=== PATIENT | male | born 1995 | race American Indian/Alaskan Native ===

== ENCOUNTER 2016-08-04 15:06 | Observation (INO) | payer OTHER ==
--- NOTE | 2016-08-04 15:10 | EDM.PDOC ---
ED HPI GENERAL MEDICAL PROBLEM - General Stated Complaint: INGESTED BREAK FLUID Time Seen by Provider: 08/04/16 15:25 Source of Information: Reports: Patient History Limitations: Reports: No Limitations - History of Present Illness INITIAL COMMENTS - FREE TEXT/NARRATIVE: History of present illness: [] Patient was changing brake fluid in his car at approximately 1:30-2PM when a large amount of bright fluid splashed onto his face and he ingested some. He states this happened 2 times. Patient states he feels sleepy and his eyes are burning. Poison control was contacted and stated that this patient needs to be admitted for 24 hours with every 6 labs to determine if he has acidosis and treated Fomepizole if he becomes acidotic. Review of systems: As per history of present illness and below otherwise all systems reviewed and negative. Past medical history: As per history of present illness and as reviewed below otherwise noncontributory. Surgical history: As per history of present illness and as reviewed below otherwise noncontributory. Social history: No reported history of drug or alcohol abuse. Family history: As per history of present illness and as reviewed below otherwise noncontributory. Physical exam: General: Well developed, well nourished in NAD HEENT: Atraumatic, normocephalic, pupils reactive, negative for conjunctival pallor or scleral icterus, mucous membranes moist, throat clear, neck supple, nontender, trachea midline. Lungs: Clear to auscultation, breath sounds equal bilaterally, chest nontender. Heart: S1S2, regular, negative for clicks, rubs, or JVD. Abdomen: Soft, nondistended, nontender. Negative for masses or hepatosplenomegaly. Negative for costovertebral tenderness. Pelvis: Stable nontender. Genitourinary: Deferred. Rectal: Deferred. Extremities: Atraumatic, negative for cords or calf pain. Neurovascular unremarkable. Neuro: Awake, alert, oriented. Cranial nerves II through XII unremarkable. Cerebellum unremarkable. Motor and sensory unremarkable throughout. Exam nonfocal. Diagnostics: []Labs including ABG, CBC, chemistry and alcohol levels ordered patient is alkalotic at this time and not requiring treatment plan observation for 24 hours with repeat labs is recommended to determine if he is acidotic. Therapeutics: [] Impression: [] Ethylene glycol Ingestion Plan: []Admitted for problems Definitive disposition and diagnosis as appropriate pending reevaluation and review of above. abdomen Pain Score (Numeric/FACES): 3 - Related Data Allergies Allergy/AdvReac Type Severity Reaction Status Date / Time No Known Allergies Allergy Verified 08/04/16 15:13 Home Meds: Home Meds . [No Known Home Meds] 11/17/14 [History] Social & Family History - Tobacco Use Smoking Status *Q: Current Every Day Smoker Years of Tobacco use: 1 Packs/Tins Daily: 0.5 - Alcohol Use Days Per Week of Alcohol Use: 1 Number of Drinks Per Day: 6 Total Drinks Per Week: 6 - Recreational Drug Use Recreational Drug Use: No ED ROS GENERAL - Review of Systems Review Of Systems: See Below (See history of present illness) ED EXAM, GENERAL - Physical Exam Exam: See Below (See history of present illness) Course - Vital Signs Last Recorded V/S: Last Vital Signs Temp 36.8 C 08/04/16 15:16 Pulse 79 08/04/16 15:16 Resp 18 08/04/16 15:16 BP 158/96 H 08/04/16 15:16 Pulse Ox 96 08/04/16 15:16 - Orders/Labs/Meds Orders: Active Orders 24 hr Category Date Time Status Patient Status [ADT] Routine ADT 08/04/16 16:46 Active Antiembolic Devices [RC] PER UNIT ROUTINE Care 08/04/16 16:50 Active Intake and Output [RC] QSHIFT Care 08/04/16 16:50 Active Oxygen Therapy [RC] PRN Care 08/04/16 16:46 Active Up ad Kristie [RC] ASDIRECTED Care 08/04/16 16:46 Active VTE/DVT Education [RC] PER UNIT ROUTINE Care 08/04/16 16:46 Active Vital Signs [RC] Q4H Care 08/04/16 16:46 Active Regular Diet [DIET] Diet 08/04/16 Breakfast Active ABG [BLOOD GAS ARTERIAL] [BG] Q6H Lab 08/04/16 22:00 Ordered ABG [BLOOD GAS ARTERIAL] [BG] Q6H Lab 08/05/16 04:00 Ordered ABG [BLOOD GAS ARTERIAL] [BG] Q6H Lab 08/05/16 10:00 Ordered ABG [BLOOD GAS ARTERIAL] [BG] Q6H Lab 08/05/16 16:00 Ordered BASIC METABOLIC PANEL,BMP [CHEM] Q6H Lab 08/04/16 22:00 Ordered BASIC METABOLIC PANEL,BMP [CHEM] Q6H Lab 08/05/16 04:00 Ordered BASIC METABOLIC PANEL,BMP [CHEM] Q6H Lab 08/05/16 10:00 Ordered BASIC METABOLIC PANEL,BMP [CHEM] Q6H Lab 08/05/16 16:00 Ordered UA W/MICROSCOPIC [URIN] Stat Lab 08/04/16 15:40 Uncollected Saline Lock Insert [OM.PC] Stat Oth 08/04/16 15:22 Ordered Sequential Compression Device [OM.PC] Per Unit Routine Oth 08/04/16 16:50 Ordered Resuscitation Status Routine Resus Stat 08/04/16 16:46 Ordered Labs: Laboratory Tests 08/04/16 08/04/16 08/04/16 Range/Units 15:43 15:45 15:45 WBC 7.57 (4.0-11.0) K/uL RBC 5.12 (4.50-5.90) M/uL Hgb 15.1 (13.0-17.0) g/dL Hct 44.3 (38.0-50.0) % MCV 86.5 (80.0-98.0) fL MCH 29.5 (27.0-32.0) pg MCHC 34.1 (31.0-37.0) g/dL RDW Std Deviation 43.6 (28.0-62.0) fl RDW Coeff of Lilia 14 (11.0-15.0) % Plt Count 250 (150-400) K/uL MPV 9.00 (7.40-12.00) fL Neut % (Auto) 62.7 (48.0-80.0) % Lymph % (Auto) 25.8 (16.0-40.0) % Kerr % (Auto) 10.8 (0.0-15.0) % Eos % (Auto) 0.3 (0.0-7.0) % Baso % (Auto) 0.4 (0.0-1.5) % Neut # (Auto) 4.8 (1.4-5.7) K/uL Lymph # (Auto) 2.0 (0.6-2.4) K/uL Kerr # (Auto) 0.8 (0.0-0.8) K/uL Eos # (Auto) 0.0 (0.0-0.7) K/uL Baso # (Auto) 0.0 (0.0-0.1) K/uL Nucleated RBC % 0.0 /100WBC Nucleated RBCs # 0 K/uL ABG pH 7.476 H (7.35-7.45) ABG pCO2 33 L (35-45) mmHG ABG pO2 99 (75-100) mmHG ABG HCO3 24 (22-26) mEq/L ABG Total CO2 20.8 ABG Base Excess 0.8 (-2.0-2.0) Sodium 137 (136-146) mmol/L Potassium 3.8 (3.5-5.1) mmol/L Chloride 103 (98-110) mmol/L Carbon Dioxide 22 (21-31) mmol/L BUN 12 (6.0-23.0) mg/dL Creatinine 1.1 (0.6-1.5) mg/dL Est Cr Clr Drug Dosing 117.58 mL/min Estimated GFR (MDRD) > 60.0 ml/min Glucose 91 (60-110) mg/dL Calcium 10.3 (8.8-10.8) mg/dL Magnesium 1.6 (1.5-2.3) mEq/L Total Bilirubin 0.8 (0.1-1.5) mg/dL AST 27 (5-40) IU/L ALT 25 (8-54) IU/L Alkaline Phosphatase 96 (40-150) Total Protein 9.4 H (6.0-8.0) g/dL Albumin 5.2 H (3.5-5.0) g/dL Globulin 4.2 H (2.0-3.5) g/dL Albumin/Globulin Ratio 1.2 L (1.3-2.8) Ethyl Alcohol mg/dL 08/04/16 Range/Units 15:45 WBC (4.0-11.0) K/uL RBC (4.50-5.90) M/uL Hgb (13.0-17.0) g/dL Hct (38.0-50.0) % MCV (80.0-98.0) fL MCH (27.0-32.0) pg MCHC (31.0-37.0) g/dL RDW Std Deviation (28.0-62.0) fl RDW Coeff of Lilia (11.0-15.0) % Plt Count (150-400) K/uL MPV (7.40-12.00) fL Neut % (Auto) (48.0-80.0) % Lymph % (Auto) (16.0-40.0) % Kerr % (Auto) (0.0-15.0) % Eos % (Auto) (0.0-7.0) % Baso % (Auto) (0.0-1.5) % Neut # (Auto) (1.4-5.7) K/uL Lymph # (Auto) (0.6-2.4) K/uL Kerr # (Auto) (0.0-0.8) K/uL Eos # (Auto) (0.0-0.7) K/uL Baso # (Auto) (0.0-0.1) K/uL Nucleated RBC % /100WBC Nucleated RBCs # K/uL ABG pH (7.35-7.45) ABG pCO2 (35-45) mmHG ABG pO2 (75-100) mmHG ABG HCO3 (22-26) mEq/L ABG Total CO2 ABG Base Excess (-2.0-2.0) Sodium (136-146) mmol/L Potassium (3.5-5.1) mmol/L Chloride (98-110) mmol/L Carbon Dioxide (21-31) mmol/L BUN (6.0-23.0) mg/dL Creatinine (0.6-1.5) mg/dL Est Cr Clr Drug Dosing mL/min Estimated GFR (MDRD) ml/min Glucose (60-110) mg/dL Calcium (8.8-10.8) mg/dL Magnesium (1.5-2.3) mEq/L Total Bilirubin (0.1-1.5) mg/dL AST (5-40) IU/L ALT (8-54) IU/L Alkaline Phosphatase (40-150) Total Protein (6.0-8.0) g/dL Albumin (3.5-5.0) g/dL Globulin (2.0-3.5) g/dL Albumin/Globulin Ratio (1.3-2.8) Ethyl Alcohol < 10.0 mg/dL Meds: Medications Discontinued Medications Generic Name Dose Route Start Last Admin Trade Name Pavithra PRN Reason Stop Dose Admin Sodium Chloride 1,000 mls @ 999 mls/hr 08/04/16 15:23 08/04/16 16:00 Normal Saline IV 08/04/16 16:23 999 mls/hr .Bolus ONE Administration Ondansetron HCl 4 mg 08/04/16 15:49 08/04/16 15:56 Zofran IVPUSH 08/04/16 15:50 4 mg ONETIME ONE Administration Departure - Departure Time of Disposition: 16:55 Disposition: Admitted As Inpatient 66 Condition: good Clinical Impression: Ethylene glycol poisoning Qualifiers: Encounter type: initial encounter Injury intent: accidental or unintentional Qualified Code(s): T52.8X1A - Toxic effect of other organic solvents, accidental (unintentional), initial encounter - Discharge Information Referrals: PCP,None [Primary Care Provider] - - My Orders Last 24 Hours: My Active Orders 08/04/16 15:22 Saline Lock Insert [OM.PC] Stat 08/04/16 15:40 UA W/MICROSCOPIC [URIN] Stat - Assessment/Plan Last 24 Hours: My Active Orders 08/04/16 15:22 Saline Lock Insert [OM.PC] Stat 08/04/16 15:40 UA W/MICROSCOPIC [URIN] Stat
[2016-08-04] MEDS ORDERED: Sodium Chloride 0.9% 1,000 ML IV ONE (15:23)
[2016-08-04] MEDS ORDERED: Ondansetron 4 MG/2 ML SDV IVPUSH ONE (15:49)
[2016-08-04 16:15] LABS: CHLORIDE,CL 103 mmol/L (98-110); SODIUM,NA 137 mmol/L (136-146)
--- NOTE | 2016-08-04 16:22 | CR ---
EXAMINATION: Two-view chest (PA and Lateral views). HISTORY: Shortness of breath. FINDINGS: The trachea is midline. The cardiomediastinal silhouette is within normal limits. No pulmonary infil trates, effusions or pneumothorax. Osseous structures appear unremarkable. IMPRESSION: No acute cardiopulmonary process.
--- NOTE | 2016-08-04 17:01 | PCM.HP ---
H&P History of Present Illness - General Admit Problem/Dx: Admission Diagnosis/Problem Admission Diagnosis/Problem Poisoning by drug - History of Present Illness Initial Comments - Free Text/Narative: 20 yo male who while changing brakefluid had the line spray in his face. He reports some went in his mouth but he did not swallow but maybe a few drops. He reported some nausea that has resolved. He presented to the ED. Poison control was called and recommended to monitor for 24 hours with q6 labs and treat if acidotic. abdomen Pain Score (Numeric/FACES): 3 - Related Data Allergies/Adverse Reactions: Allergies Allergy/AdvReac Type Severity Reaction Status Date / Time No Known Allergies Allergy Verified 08/04/16 15:13 Home Medications: Home Meds . [No Known Home Meds] 11/17/14 [History] Past Medical History - Past Health History Medical/Surgical History: Denies Medical/Surgical History - Past Surgical History Musculoskeletal Surgical History: Reports: Other (See Below) Other Musculoskeletal Surgeries/Procedures:: right leg sx Social & Family History - Family History Family Medical History: Noncontributory - Tobacco Use Smoking Status *Q: Current Every Day Smoker Years of Tobacco use: 1 Packs/Tins Daily: 0.5 - Caffeine Use Caffeine Use: Reports: None - Alcohol Use Days Per Week of Alcohol Use: 1 Number of Drinks Per Day: 6 Total Drinks Per Week: 6 - Recreational Drug Use Recreational Drug Use: No H&P Review of Systems - Review of Systems: Review Of Systems: See Below General: Reports: No Symptoms HEENT: Reports: No Symptoms Pulmonary: Reports: No Symptoms Cardiovascular: Reports: No Symptoms Gastrointestinal: Reports: No Symptoms Genitourinary: Reports: No Symptoms Musculoskeletal: Reports: No Symptoms Skin: Reports: No Symptoms Psychiatric: Reports: No Symptoms Neurological: Reports: No Symptoms Hematologic/Lymphatic: Reports: No Symptoms Immunologic: Reports: No Symptoms Exam - Exam Exam: See Below - Vital Signs Vital Signs: Last Vital Signs Temp 36.8 C 08/04/16 15:16 Pulse 79 08/04/16 15:16 Resp 18 08/04/16 15:16 BP 158/96 H 08/04/16 15:16 Pulse Ox 96 08/04/16 15:16 Weight: 83.8 kg - Exam General: Alert, Oriented Lungs: Clear to Auscultation, Normal Respiratory Effort Cardiovascular: Regular Rate, Regular Rhythm Abdomen: Soft. No: Tenderness Extremities: Normal Inspection Skin: Warm, Dry, Intact Neurological: No: Focal Deficit - Patient Data Lab Results last 24 hrs: Laboratory Results - last 24 hr 08/04/16 08/04/16 08/04/16 Range/Units 15:43 15:45 15:45 WBC 7.57 (4.0-11.0) K/uL RBC 5.12 (4.50-5.90) M/uL Hgb 15.1 (13.0-17.0) g/dL Hct 44.3 (38.0-50.0) % MCV 86.5 (80.0-98.0) fL MCH 29.5 (27.0-32.0) pg MCHC 34.1 (31.0-37.0) g/dL RDW Std Deviation 43.6 (28.0-62.0) fl RDW Coeff of Lilia 14 (11.0-15.0) % Plt Count 250 (150-400) K/uL MPV 9.00 (7.40-12.00) fL Neut % (Auto) 62.7 (48.0-80.0) % Lymph % (Auto) 25.8 (16.0-40.0) % Rolette % (Auto) 10.8 (0.0-15.0) % Eos % (Auto) 0.3 (0.0-7.0) % Baso % (Auto) 0.4 (0.0-1.5) % Neut # (Auto) 4.8 (1.4-5.7) K/uL Lymph # (Auto) 2.0 (0.6-2.4) K/uL Rolette # (Auto) 0.8 (0.0-0.8) K/uL Eos # (Auto) 0.0 (0.0-0.7) K/uL Baso # (Auto) 0.0 (0.0-0.1) K/uL Nucleated RBC % 0.0 /100WBC Nucleated RBCs # 0 K/uL ABG pH 7.476 H (7.35-7.45) ABG pCO2 33 L (35-45) mmHG ABG pO2 99 (75-100) mmHG ABG HCO3 24 (22-26) mEq/L ABG Total CO2 20.8 ABG Base Excess 0.8 (-2.0-2.0) Sodium 137 (136-146) mmol/L Potassium 3.8 (3.5-5.1) mmol/L Chloride 103 (98-110) mmol/L Carbon Dioxide 22 (21-31) mmol/L BUN 12 (6.0-23.0) mg/dL Creatinine 1.1 (0.6-1.5) mg/dL Est Cr Clr Drug Dosing 117.58 mL/min Estimated GFR (MDRD) > 60.0 ml/min Glucose 91 (60-110) mg/dL Calcium 10.3 (8.8-10.8) mg/dL Magnesium 1.6 (1.5-2.3) mEq/L Total Bilirubin 0.8 (0.1-1.5) mg/dL AST 27 (5-40) IU/L ALT 25 (8-54) IU/L Alkaline Phosphatase 96 (40-150) Total Protein 9.4 H (6.0-8.0) g/dL Albumin 5.2 H (3.5-5.0) g/dL Globulin 4.2 H (2.0-3.5) g/dL Albumin/Globulin Ratio 1.2 L (1.3-2.8) Ethyl Alcohol mg/dL 08/04/16 Range/Units 15:45 WBC (4.0-11.0) K/uL RBC (4.50-5.90) M/uL Hgb (13.0-17.0) g/dL Hct (38.0-50.0) % MCV (80.0-98.0) fL MCH (27.0-32.0) pg MCHC (31.0-37.0) g/dL RDW Std Deviation (28.0-62.0) fl RDW Coeff of Lilia (11.0-15.0) % Plt Count (150-400) K/uL MPV (7.40-12.00) fL Neut % (Auto) (48.0-80.0) % Lymph % (Auto) (16.0-40.0) % Rolette % (Auto) (0.0-15.0) % Eos % (Auto) (0.0-7.0) % Baso % (Auto) (0.0-1.5) % Neut # (Auto) (1.4-5.7) K/uL Lymph # (Auto) (0.6-2.4) K/uL Rolette # (Auto) (0.0-0.8) K/uL Eos # (Auto) (0.0-0.7) K/uL Baso # (Auto) (0.0-0.1) K/uL Nucleated RBC % /100WBC Nucleated RBCs # K/uL ABG pH (7.35-7.45) ABG pCO2 (35-45) mmHG ABG pO2 (75-100) mmHG ABG HCO3 (22-26) mEq/L ABG Total CO2 ABG Base Excess (-2.0-2.0) Sodium (136-146) mmol/L Potassium (3.5-5.1) mmol/L Chloride (98-110) mmol/L Carbon Dioxide (21-31) mmol/L BUN (6.0-23.0) mg/dL Creatinine (0.6-1.5) mg/dL Est Cr Clr Drug Dosing mL/min Estimated GFR (MDRD) ml/min Glucose (60-110) mg/dL Calcium (8.8-10.8) mg/dL Magnesium (1.5-2.3) mEq/L Total Bilirubin (0.1-1.5) mg/dL AST (5-40) IU/L ALT (8-54) IU/L Alkaline Phosphatase (40-150) Total Protein (6.0-8.0) g/dL Albumin (3.5-5.0) g/dL Globulin (2.0-3.5) g/dL Albumin/Globulin Ratio (1.3-2.8) Ethyl Alcohol < 10.0 mg/dL Result Diagrams: 08/04/16 15:45 08/05/16 09:59 *Q Meaningful Use (ADM) - VTE *Q VTE Criteria *Q: - Stroke *Q Stroke Criteria *Q: - AMI *Q AMI Criteria *Q: Problem List Initiated/Reviewed/Updated: Yes Orders Last 24hrs: Active Orders 24 hr Category Date Time Status Patient Status [ADT] Routine ADT 08/04/16 16:46 Ordered Antiembolic Devices [RC] PER UNIT ROUTINE Care 08/04/16 16:50 Ordered Intake and Output [RC] QSHIFT Care 08/04/16 16:50 Ordered Oxygen Therapy [RC] PRN Care 08/04/16 16:46 Ordered Up ad Kristie [RC] ASDIRECTED Care 08/04/16 16:46 Ordered VTE/DVT Education [RC] PER UNIT ROUTINE Care 08/04/16 16:46 Ordered Vital Signs [RC] Q4H Care 08/04/16 16:46 Ordered Regular Diet [DIET] Diet 08/04/16 Breakfast Ordered ABG [BLOOD GAS ARTERIAL] [BG] Q6H Lab 08/04/16 22:00 Ordered ABG [BLOOD GAS ARTERIAL] [BG] Q6H Lab 08/05/16 04:00 Ordered ABG [BLOOD GAS ARTERIAL] [BG] Q6H Lab 08/05/16 10:00 Ordered ABG [BLOOD GAS ARTERIAL] [BG] Q6H Lab 08/05/16 16:00 Ordered BASIC METABOLIC PANEL,BMP [CHEM] Q6H Lab 08/04/16 22:00 Ordered BASIC METABOLIC PANEL,BMP [CHEM] Q6H Lab 08/05/16 04:00 Ordered BASIC METABOLIC PANEL,BMP [CHEM] Q6H Lab 08/05/16 10:00 Ordered BASIC METABOLIC PANEL,BMP [CHEM] Q6H Lab 08/05/16 16:00 Ordered UA W/MICROSCOPIC [URIN] Stat Lab 08/04/16 15:40 Uncollected Saline Lock Insert [OM.PC] Stat Oth 08/04/16 15:22 Ordered Sequential Compression Device [OM.PC] Per Unit Routine Oth 08/04/16 16:50 Ordered Resuscitation Status Routine Resus Stat 08/04/16 16:46 Ordered Assessment/Plan Comment:: Patient was monitored overnight and has no symptoms this morning. Serial labs revealed on acidosis. Patient was discharged home to follow up with Eunice Castellanos.
[2016-08-04 22:33] LABS: CHLORIDE,CL 106 mmol/L (98-110); SODIUM,NA 137 mmol/L (136-146)
[2016-08-05 04:46] LABS: CHLORIDE,CL 106 mmol/L (98-110); SODIUM,NA 139 mmol/L (136-146)
[2016-08-05 09:17] VITALS: BP 126/88
[2016-08-05 10:27] LABS: CHLORIDE,CL 105 mmol/L (98-110); SODIUM,NA 137 mmol/L (136-146)
== END 2016-08-05 12:30 | disposition home or self-care (01) ==
LOC: MW.ED 15:06 → MW.MS 17:00
PROVIDERS: ADMIT Internal Medicine; ATTEND Internal Medicine
DX: T52.8X1A Toxic effect of other organic solvents, accidental (unintentional), initial encounter (principal); R11.0 Nausea; R06.02 Shortness of breath; F17.210 Nicotine dependence, cigarettes, uncomplicated; Z98.890 Other specified postprocedural states
CPT/HCPCS: 36415; 36600; 71020; 80048; 80053; 81001; 82803; 83735; 85025; 96361; 96374; 99285; G0378; G0480; J2405; J7040; 96360

== ENCOUNTER 2017-03-07 04:48 | Emergency (ER) | payer OTHER ==
[2017-03-07] MEDS ORDERED: Bacitracin Oint 1 GM U/D Packet TOP ONE (05:05)
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
[2017-03-07 06:34] VITALS: BP 144/94
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
== END 2017-03-07 06:22 | disposition home or self-care (01) ==
LOC: MW.ED 04:48
DX: S00.83XA Contusion of other part of head, initial encounter (principal); S09.93XA Unspecified injury of face, initial encounter; S60.511A Abrasion of right hand, initial encounter; S00.211A Abrasion of right eyelid and periocular area, initial encounter; F17.210 Nicotine dependence, cigarettes, uncomplicated; Y04.2XXA Assault by strike against or bumped into by another person, initial encounter
CPT/HCPCS: 70450; 70450-26; 70486; 70486-26; 73120-26-RT; 73120-RT; 99284; 99284-25

== ENCOUNTER 2019-01-25 19:45 | Emergency (ER) | payer OTHER ==
[2019-01-25] MEDS ORDERED: Pantoprazole 80 MG in Sodium Chloride 0.9% 20 ML IVPUSH ONE (20:13)
[2019-01-25] MEDS ORDERED: Sodium Chloride 0.9% 1,000 ML IV ONE (20:13)
[2019-01-25] MEDS ORDERED: Ondansetron 4 MG/2 ML SDV IVPUSH ONE (20:13)
--- NOTE | 2019-01-25 20:31 | EDM.PDOC ---
ED HPI GENERAL MEDICAL PROBLEM - General Chief Complaint: Abdominal Pain Stated Complaint: STOMACH ACHE Time Seen by Provider: 01/25/19 19:48 Source of Information: Reports: Patient History Limitations: Reports: No Limitations - History of Present Illness INITIAL COMMENTS - FREE TEXT/NARRATIVE: HISTORY AND PHYSICAL: History of present illness: Patient is a 23-year-old male who presents to the ED today with concern of upper abdominal pain and vomiting since 4 this morning. Patient states his vomit has been coffee-ground in appearance. Patient denies any substance use. Patient denies any abdominal surgeries. Patient denies fever, chills, chest pain, shortness of breath, or cough. Denies headache, neck stiff ness, change in vision, syncope, or near syncope. Denies diarrhea, constipation, or dysuria. Has not noted any blood in urine or stool. Review of systems: As per history of present illness and below otherwise all systems reviewed and negative. Past medical history: As per history of present illness and as reviewed below otherwise noncontributory. Surgical history: As per history of present illness and as reviewed below otherwise noncontributory. Social history: See social history for further information Family history: As per history of present illness and as reviewed below otherwise noncontributory. Physical exam: General: Patient is alert, oriented, and in no acute distress. Patient sitting comfortably on exam table. HEENT: Atraumatic, normocephalic, pupils equal and reactive bilaterally, negative for conjunctival pallor or scleral icterus, mucous membranes dry, TMs normal bilaterally, throat clear, neck supple, nontender, trachea midline. No drooling or trismus noted. No meningeal signs. No hot potato voice noted. Lungs: Clear to auscultation, breath sounds equal bilaterally, chest nontender. Heart: S1S2, regular rate and rhythm without overt murmur Abdomen: Soft, nondistended. Mild discomfort of the epigastric area without guarding. Negative rebound. Negative for masses or hepatosplenomegaly. Negative for costovertebral tenderness. Pelvis: Stable nontender. Genitourinary: Deferred. Rectal: Hemoccult negative. tone intact. No obvious fissure, hemorrhoids, masses or lesions noted. Skin: Intact, warm, dry. No lesions or rashes noted. Extremities: Atraumatic, negative for cords or calf pain. Neurovascular unremarkable. Neuro: Awake, alert, oriented. Cranial nerves II through XII unremarkable. Cerebellum unremarkable. Motor and sensory unremarkable throughout. Exam nonfocal. Notes: Patient has not vomited today in the ED. Discussed the importance for follow-up with general surgery. Voices understanding and is agreeable to plan of care. Denies any further questions or concerns at this time. Diagnostics: CBC, CMP, UA, lipase, Hemoccult, abdominal pelvic CT Therapeutics: Saline, Zofran, Protonix, Morphine Prescription: Zofran, Protonix, Pepcid Impression: Dehydration H/O vomiting Plan: 1. Take medication as prescribed. Take Tylenol as directed for pain and discomfort. 2. Follow-up with general surgery as discussed. Return to the ED as needed and as discussed. Definitive disposition and diagnosis as appropriate pending reevaluation and review of above. Abdomen Pain Score (Numeric/FACES): 9 - Related Data Allergies Allergy/AdvReac Type Severity Reaction Status Date / Time No Known Allergies Allergy Verified 01/25/19 19:58 Home Meds: Home Meds Famotidine [Pepcid] 20 mg PO DAILY 14 Days #14 tab 01/25/19 [Rx] Pantoprazole Sodium [Protonix] 20 mg PO DAILY 14 Days #14 tablet. 01/25/19 [Rx ] Past Medical History - Past Health History Medical/Surgical History: Denies Medical/Surgical History HEENT History: Reports: Impaired Vision, Other (See Below) Other HEENT History: with contact lens Cardiovascular History: Reports: None Respiratory History: Reports: None Gastrointestinal History: Reports: None Genitourinary History: Reports: None Musculoskeletal History: Reports: None Neurological History: Reports: None Psychiatric History: Reports: None Endocrine/Metabolic History: Reports: None Insulin Pump Model and Lip Of Shank Cutter: None Hematologic History: Reports: None Immunologic History: Reports: None Oncologic (Cancer) History: Reports: None Dermatologic History: Reports: None - Infectious Disease History Infectious Disease History: Reports: None - Past Surgical History Musculoskeletal Surgical History: Reports: Other (See Below) Other Musculoskeletal Surgeries/Procedures:: right leg sx Social & Family History - Family History Family Medical History: Noncontributory Cardiac: Reports: CAD, [place] Endocrine/Metabolic: Reports: Diabetes, type II Oncologic: Reports: Other (See Below) Other Oncologic Family History: cannot remember what type - Tobacco Use Smoking Status *Q: Never Smoker - Caffeine Use Caffeine Use: Reports: None - Recreational Drug Use Recreational Drug Use: No ED ROS GENERAL - Review of Systems Review Of Systems: Comprehensive ROS is negative, except as noted in HPI. ED EXAM, GENERAL - Physical Exam Exam: See Below (see dictation) Course - Vital Signs Last Recorded V/S: Last Vital Signs Temp 97.2 F 01/25/19 19:59 Pulse 100 01/25/19 19:59 Resp 18 01/25/19 19:59 BP 133/76 01/25/19 19:59 Pulse Ox 98 01/25/19 19:59 - Orders/Labs/Meds Orders: Active Orders 24 hr Category Date Time Status Hemoccult [Fecal Occult Blood Collection] [RC] Care 01/25/19 20:14 Active ASDIRECTED Labs: Laboratory Tests 01/25/19 01/25/19 01/25/19 Range/Units 19:55 20:10 20:10 WBC 8.83 (4.0-11.0) K/uL RBC 5.09 (4.50-5.90) M/uL Hgb 15.2 (13.0-17.0) g/dL Hct 42.8 (38.0-50.0) % MCV 84.1 (80.0-98.0) fL MCH 29.9 (27.0-32.0) pg MCHC 35.5 (31.0-37.0) g/dL RDW Std Deviation 39.7 (28.0-62.0) fl RDW Coeff of Lilia 13 (11.0-15.0) % Plt Count 357 (150-400) K/uL MPV 8.80 (7.40-12.00) fL Neut % (Auto) 74.6 (48.0-80.0) % Lymph % (Auto) 17.2 (16.0-40.0) % Tripp % (Auto) 8.0 (0.0-15.0) % Eos % (Auto) 0.0 (0.0-7.0) % Baso % (Auto) 0.2 (0.0-1.5) % Neut # (Auto) 6.6 H (1.4-5.7) K/uL Lymph # (Auto) 1.5 (0.6-2.4) K/uL Tripp # (Auto) 0.7 (0.0-0.8) K/uL Eos # (Auto) 0.0 (0.0-0.7) K/uL Baso # (Auto) 0.0 (0.0-0.1) K/uL Sodium 139 (136-148) mmol/L Potassium 3.9 (3.5-5.1) mmol/L Chloride 99 (98-107) mmol/L Carbon Dioxide 22.9 (21.0-32.0) mmol/L BUN 18 (7.0-18.0) mg/dL Creatinine 1.3 (0.8-1.3) mg/dL Est Cr Clr Drug Dosing 104.13 mL/min Estimated GFR (MDRD) > 60.0 ml/min Glucose 90 (74-106) mg/dL Calcium 9.9 (8.5-10.1) mg/dL Total Bilirubin 0.5 (0.2-1.0) mg/dL AST 24 (15-37) IU/L ALT 37 (14-63) IU/L Alkaline Phosphatase 101 (46-116) U/L Total Protein 9.8 H (6.4-8.2) g/dL Albumin 4.9 (3.4-5.0) g/dL Globulin 4.9 H (2.6-4.0) g/dL Albumin/Globulin Ratio 1.0 (0.9-1.6) Lipase 61 L (73-393) U/L Urine Color YELLOW Urine Appearance CLEAR Urine pH 5.5 (5.0-8.0) Ur Specific Talent >= 1.030 (1.001-1.035) Urine Protein 30 H (NEGATIVE) mg/dL Urine Glucose (UA) NEGATIVE (NEGATIVE) mg/dL Urine Ketones >=80 (NEGATIVE) mg/dL Urine Occult Blood SMALL H (NEGATIVE) Urine Nitrite NEGATIVE (NEGATIVE) Urine Bilirubin SMALL H (NEGATIVE) Urine Ictotest NEGATIVE Urine Urobilinogen 0.2 (<2.0) EU/dL Ur Leukocyte Esterase NEGATIVE (NEGATIVE) Urine RBC 1-2 (0-2/HPF) Urine WBC 0-1 (0-5/HPF) Ur Epithelial Cells RARE (NONE-FEW) Urine Bacteria RARE (NEGATIVE) Meds: Medications Discontinued Medications Generic Name Dose Route Start Last Admin Trade Name Freq PRN Reason Stop Dose Admin Sodium Chloride 1,000 mls @ 999 mls/hr 01/25/19 20:13 01/25/19 20:26 Normal Saline IV 01/25/19 21:13 999 mls/hr BOLUS ONE Administration Pantoprazole Sodium 80 mg/ 20 mls @ 420 mls/hr 01/25/19 20:13 01/25/19 20:27 Sodium Chloride IVPUSH 01/25/19 20:15 420 mls/hr ONETIME ONE Administration Iopamidol 100 ml 01/25/19 21:04 01/25/19 21:04 Isovue Multipack-370 (76%) IVPUSH 01/25/19 21:05 100 ml ONETIME STA Administration Morphine Sulfate 2 mg 01/25/19 20:38 01/25/19 20:44 Morphine IVPUSH 01/25/19 20:39 2 mg ONETIME ONE Administration Ondansetron HCl 4 mg 01/25/19 20:13 01/25/19 20:26 Zofran IVPUSH 01/25/19 20:14 4 mg ONETIME ONE Administration Departure - Departure Time of Disposition: 22:19 Disposition: Home, Self-Care 01 Clinical Impression: Dehydration, History of vomiting - Discharge Information Prescriptions: Famotidine [Pepcid] 20 mg PO DAILY 14 Days #14 tab Pantoprazole Sodium [Protonix] 20 mg PO DAILY 14 Days #14 tablet. Referrals: [facility] [Primary Care Provider] - Forms: ED Department Discharge Additional Instructions: The following information is given to patients seen in the emergency department who are being discharged to home. This information is to outline your options for follow-up care. We provide all patients seen in our emergency department with a follow-up referral. The need for follow-up, as well as the timing and circumstances, are variable depending upon the specifics of your emergency department visit. If you don't have a primary care physician on staff, we will provide you with a referral. We always advise you to contact your personal physician following an emergency department visit to inform them of the circumstance of the visit and for follow-up with them and/or the need for any referrals to a consulting specialist. The emergency department will also refer you to a specialist when appropriate. This referral assures that you have the opportunity for follow-up care with a specialist. All of these measure are taken in an effort to provide you with optimal care, which includes your follow-up. Under all circumstances we always encourage you to contact your private physician who remains a resource for coordinating your care. When calling for follow-up care, please make the office aware that this follow-up is from your recent emergency room visit. If for any reason you are refused follow-up, please contact the [facility] Emergency Department at and asked to speak to the emergency department charge nurse. [facility] [address] [place] [address] [address] [facility] - [facility] Professional [facility] [address] [place] [address], [address] [place] [address] 1. Take medication as prescribed. Take Tylenol as directed for pain and discomfort. 2. Follow-up with general surgery as discussed. Return to the ED as needed and as discussed. - My Orders Last 24 Hours: My Active Orders 01/25/19 20:14 Hemoccult [Fecal Occult Blood Collection] [] ASDIRECTED - Assessment/Plan Last 24 Hours: My Active Orders 01/25/19 20:14 Hemoccult [Fecal Occult Blood Collection] [] ASDIRECTED
[2019-01-25] MEDS ORDERED: Morphine 2 MG/ML Syringe IVPUSH ONE (20:38)
[2019-01-25 20:42] LABS: BLOOD UREA NITROGEN,BUN 18 mg/dL (7.0-18.0); CARBON DIOXIDE,CO2 22.9 mmol/L (21.0-32.0); CHLORIDE,CL 99 mmol/L (98-107); GLUCOSE RANDOM 90 mg/dL (74-106); LIPASE 61 U/L (73-393); POTASSIUM,K 3.9 mmol/L (3.5-5.1); SODIUM,NA 139 mmol/L (136-148)
[2019-01-25] MEDS ORDERED: Iopamidol 755 MG/ML 500 ML Multipack Bottle IVPUSH STA (21:04)
--- NOTE | 2019-01-25 22:14 | CT ---
INDICATION: Abdominal pain, nausea, coffee ground emesis TECHNIQUE: CT abdomen and pelvis acquired with 100 cc Isovue 370 IV contrast. COMPARISON: None FINDINGS: Lower chest: Small hiatal hernia. Liver: Unremarkable. Spleen: Unremarkable. Pancreas: Unremarkable. Gallbladder and bile ducts: Unremarkable. Adrenal glands: Unremarkable. Kidneys: Unremarkable. GI tract: Unremarkable. Appendix is normal. Vascular structures: Unremarkable. Lymph nodes: Unremarkable. Miscellaneous: Small fat containing umbilical hernia. No free air or significant free fluid. Pelvic Organs: Unremarkable. Bones: Unremarkable for age. IMPRESSION: No acute intra-abdominal process identified. Small hiatal hernia. Please note that all CT scans at this facility use dose modulation, iterative reconstruction, and/or weight-based dosing when appropriate to reduce radiation dose to as low as reasonably achievable. Dictated by Peri Tompkins MD @ Jan 25 2019 10:12PM Signed by Dr. Peri Tompkins @ Jan 25 2019 10:12PM
[2019-01-25] MEDS ORDERED: Alum Hydrox/Mag Hydrox/Simeth 15 ML, Metoclopramide 5 MG, Lidocaine 2% 5 ML PO ONE ×3 (22:27)
[2019-01-25 22:48] VITALS: BP 136/96; PULSE 88
== END 2019-01-25 22:52 | disposition home or self-care (01) ==
LOC: MW.ED 19:45
DX: E86.0 Dehydration (principal); R11.10 Vomiting, unspecified; Z79.899 Other long term (current) drug therapy
CPT/HCPCS: 74177; 80053; 81001; 83690; 85025; 96361; 96374; 96375; 99284; A9270; C9113; J2270; J2405; J7030; Q9967

== ENCOUNTER 2019-06-15 10:57 | Emergency (ER) | payer SELFPAY ==
[2019-06-15] MEDS ORDERED: Ondansetron 4 MG/2 ML SDV IVPUSH ONE (11:16)
[2019-06-15] MEDS ORDERED: Sodium Chloride 0.9% 1,000 ML IV ONE (11:16)
[2019-06-15] MEDS ORDERED: Ketorolac 30 MG/ML SDV IVPUSH ONE (11:32)
[2019-06-15] MEDS ORDERED: Pantoprazole 80 MG in Sodium Chloride 0.9% 20 ML IVPUSH ONE (11:33)
[2019-06-15] MEDS ORDERED: Pantoprazole 40 MG Vial ONE (11:38)
--- NOTE | 2019-06-15 11:39 | EDM.PDOC ---
ED HPI GENERAL MEDICAL PROBLEM - General Chief Complaint: Abdominal Pain Stated Complaint: STOMACH PAIN Time Seen by Provider: 06/15/19 11:04 Source of Information: Reports: Patient History Limitations: Reports: No Limitations - History of Present Illness INITIAL COMMENTS - FREE TEXT/NARRATIVE: HISTORY AND PHYSICAL: History of present illness: Patient is a 23-year-old male who presents to the ED today for with concern of periumbilical abdominal pain and and vomiting since he woke up this morning at about 8 AM. Patient states that the vomiting comes and cycles and has not tried to eat or drink anything. Patient describes the stomach pain as a "burning " sensation. Denies any abdominal surgeries. Patient states he does drink alcohol socially and smoke cigarettes but denies any other substance use. Patient denies any health history or any other symptoms or concerns. Patient denies fever, chills, chest pain, shortness of breath, or cough. Denies headache, neck stiff ness, change in vision, syncope, or near syncope. Denies diarrhea, constipation, or dysuria. Has not noted any blood in urine or stool. Review of systems: As per history of present illness and below otherwise all systems reviewed and negative. Past medical history: As per history of present illness and as reviewed below otherwise noncontributory. Surgical history: As per history of present illness and as reviewed below otherwise noncontributory. Social history: See social history for further information Family history: As per history of present illness and as reviewed below otherwise noncontributory. Physical exam: General: Patient is alert, oriented, and in no acute distress. Patient laying comfortably on exam table but has had a few episodes of vomiting upon arrival to the ED HEENT: Atraumatic, normocephalic, pupils equal and reactive bilaterally, negative for conjunctival pallor or scleral icterus, mucous membranes moist, TMs normal bilaterally, throat clear, neck supple, nontender, trachea midline. No drooling or trismus noted. No meningeal signs. No hot potato voice noted. Lungs: Clear to auscultation, breath sounds equal bilaterally, chest nontender. Heart: S1S2, regular rate and rhythm without overt murmur Abdomen: Soft, nondistended, moderate tenderness of the periumbilical abdomen without guarding. Negative rebound and [place]. Negative for masses or hepatosplenomegaly. Negative for costovertebral tenderness. Pelvis: Stable nontender. Genitourinary: Deferred. Rectal: Deferred. Skin: Intact, warm, dry. No lesions or rashes noted. Extremities: Atraumatic, negative for cords or calf pain. Neurovascular unremarkable. Neuro: Awake, alert, oriented. Cranial nerves II through XII unremarkable. Cerebellum unremarkable. Motor and sensory unremarkable throughout. Exam nonfocal. Notes: Patient continued to vomit in the ED while pending diagnostics and Zofran given. After Haldol and Benadryl given, patient no longer had any more episodes of vomiting and states he no longer has abdominal pain and feels better requesting discharge. Admission for observation was offered to patient but he declines at this time. All risks vs benefits discussed with patient and expresses understanding. Discussed importance for follow-up with a primary care provider and the need to have the urinalysis repeated due to protein in urine. Voices understanding and is agreeable to plan of care. Denies any further questions or concerns at this time. Diagnostics: CBC, CMP, UA, EKG, UDS, Lipase, Abd/pelvic w cont Therapeutics: NS, Zofran, Protonix, Toradol, Benadryl, Haldol 5mg Prescription: None Impression: Vomiting, improved Periumbilical abdominal pain, unspecified improved Proteinuria, unspecified Substance abuse Plan: 1. You can alternate ibuprofen and Tylenol as directed for pain and discomfort. 2. Follow-up with a primary care provider as discussed and for repeat labwork. Return to the ED as needed and as discussed. Definitive disposition and diagnosis as appropriate pending reevaluation and review of above. Abdomen Pain Score (Numeric/FACES): 10 - Related Data Allergies Allergy/AdvReac Type Severity Reaction Status Date / Time No Known Allergies Allergy Verified 01/25/19 19:58 Past Medical History - Past Health History Medical/Surgical History: Denies Medical/Surgical History HEENT History: Reports: Impaired Vision, Other (See Below) Other HEENT History: with contact lens Cardiovascular History: Reports: None Respiratory History: Reports: None Gastrointestinal History: Reports: None Genitourinary History: Reports: None Musculoskeletal History: Reports: None Neurological History: Reports: None Psychiatric History: Reports: None Endocrine/Metabolic History: Reports: None Insulin Pump Model and Sanitary Landfill Operator: None Hematologic History: Reports: None Immunologic History: Reports: None Oncologic (Cancer) History: Reports: None Dermatologic History: Reports: None - Infectious Disease History Infectious Disease History: Reports: None - Past Surgical History Musculoskeletal Surgical History: Reports: Other (See Below) Other Musculoskeletal Surgeries/Procedures:: right leg sx Social & Family History - Family History Family Medical History: Noncontributory Cardiac: Reports: CAD, CA Endocrine/Metabolic: Reports: Diabetes, type II Oncologic: Reports: Other (See Below) Other Oncologic Family History: cannot remember what type - Caffeine Use Caffeine Use: Reports: None ED ROS GENERAL - Review of Systems Review Of Systems: Comprehensive ROS is negative, except as noted in HPI. ED EXAM, GENERAL - Physical Exam Exam: See Below (see dictation) Course - Vital Signs Last Recorded V/S: Last Vital Signs Temp 96.2 F L 06/15/19 11:35 Pulse 70 06/15/19 11:37 Resp 16 06/15/19 11:37 BP 95/59 L 06/15/19 13:21 Pulse Ox 96 06/15/19 11:37 - Orders/Labs/Meds Orders: Active Orders 24 hr Category Date Time Status EKG Documentation Completion [RC] STAT Care 06/15/19 11:38 Active Labs: Laboratory Tests 06/15/19 06/15/19 06/15/19 Range/Units 11:20 11:20 14:34 WBC 9.33 (4.0-11.0) K/uL RBC 5.72 (4.50-5.90) M/uL Hgb 16.9 (13.0-17.0) g/dL Hct 49.6 (38.0-50.0) % MCV 86.7 (80.0-98.0) fL MCH 29.5 (27.0-32.0) pg MCHC 34.1 (31.0-37.0) g/dL RDW Std Deviation 44.0 (28.0-62.0) fl RDW Coeff of Lilia 14 (11.0-15.0) % Plt Count 331 (150-400) K/uL MPV 9.00 (7.40-12.00) fL Neut % (Auto) 78.4 (48.0-80.0) % Lymph % (Auto) 16.0 (16.0-40.0) % [place] % (Auto) 5.3 (0.0-15.0) % Eos % (Auto) 0.1 (0.0-7.0) % Baso % (Auto) 0.2 (0.0-1.5) % Neut # (Auto) 7.3 H (1.4-5.7) K/uL Lymph # (Auto) 1.5 (0.6-2.4) K/uL [place] # (Auto) 0.5 (0.0-0.8) K/uL Eos # (Auto) 0.0 (0.0-0.7) K/uL Baso # (Auto) 0.0 (0.0-0.1) K/uL Nucleated RBC % 0.0 /100WBC Nucleated RBCs # 0 K/uL Sodium 138 (136-148) mmol/L Potassium 4.2 (3.5-5.1) mmol/L Chloride 97 L (98-107) mmol/L Carbon Dioxide 19.1 L (21.0-32.0) mmol/L BUN 16 (7.0-18.0) mg/dL Creatinine 1.3 (0.8-1.3) mg/dL Est Cr Clr Drug Dosing 99.88 mL/min Estimated GFR (MDRD) > 60.0 ml/min Glucose 88 (74-106) mg/dL Calcium 10.1 (8.5-10.1) mg/dL Total Bilirubin 0.9 (0.2-1.0) mg/dL AST 46 H (15-37) IU/L ALT 42 (14-63) IU/L Alkaline Phosphatase 133 H (46-116) U/L Total Protein 10.1 H (6.4-8.2) g/dL Albumin 5.3 H (3.4-5.0) g/dL Globulin 4.8 H (2.6-4.0) g/dL Albumin/Globulin Ratio 1.1 (0.9-1.6) Lipase 93 (73-393) U/L Urine Color YELLOW Urine Appearance CLEAR Urine pH 6.0 (5.0-8.0) Ur Specific [place] 1.025 (1.001-1.035) Urine Protein 30 H (NEGATIVE) mg/dL Urine Glucose (UA) NEGATIVE (NEGATIVE) mg/dL Urine Ketones 40 H (NEGATIVE) mg/dL Urine Occult Blood SMALL H (NEGATIVE) Urine Nitrite NEGATIVE (NEGATIVE) Urine Bilirubin NEGATIVE (NEGATIVE) Urine Urobilinogen 0.2 (<2.0) EU/dL Ur Leukocyte Esterase NEGATIVE (NEGATIVE) Urine RBC 0-2 (0-2/HPF) Urine WBC 0-2 (0-5/HPF) Ur Epithelial Cells RARE (NONE-FEW) Urine Bacteria RARE (NEGATIVE) Urine Mucus LIGHT (NONE-MOD) Urine Opiates Screen (NEGATIVE) Ur Oxycodone Screen (NEGATIVE) Urine Methadone Screen (NEGATIVE) Ur Barbiturates Screen (NEGATIVE) Ur Phencyclidine Scrn (NEGATIVE) Ur Amphetamine Screen (NEGATIVE) U Methamphetamines Scrn (NEGATIVE) U Benzodiazepines Scrn (NEGATIVE) U Cocaine Metab Screen (NEGATIVE) U Marijuana (THC) Screen (NEGATIVE) 06/15/19 Range/Units 14:34 WBC (4.0-11.0) K/uL RBC (4.50-5.90) M/uL Hgb (13.0-17.0) g/dL Hct (38.0-50.0) % MCV (80.0-98.0) fL MCH (27.0-32.0) pg MCHC (31.0-37.0) g/dL RDW Std Deviation (28.0-62.0) fl RDW Coeff of [place] (11.0-15.0) % Plt Count (150-400) K/uL MPV (7.40-12.00) fL Neut % (Auto) (48.0-80.0) % Lymph % (Auto) (16.0-40.0) % [place] % (Auto) (0.0-15.0) % Eos % (Auto) (0.0-7.0) % Baso % (Auto) (0.0-1.5) % Neut # (Auto) (1.4-5.7) K/uL Lymph # (Auto) (0.6-2.4) K/uL [place] # (Auto) (0.0-0.8) K/uL Eos # (Auto) (0.0-0.7) K/uL Baso # (Auto) (0.0-0.1) K/uL Nucleated RBC % /100WBC Nucleated RBCs # K/uL Sodium (136-148) mmol/L Potassium (3.5-5.1) mmol/L Chloride (98-107) mmol/L Carbon Dioxide (21.0-32.0) mmol/L BUN (7.0-18.0) mg/dL Creatinine (0.8-1.3) mg/dL Est Cr Clr Drug Dosing mL/min Estimated GFR (MDRD) ml/min Glucose (74-106) mg/dL Calcium (8.5-10.1) mg/dL Total Bilirubin (0.2-1.0) mg/dL AST (15-37) IU/L ALT (14-63) IU/L Alkaline Phosphatase (46-116) U/L Total Protein (6.4-8.2) g/dL Albumin (3.4-5.0) g/dL Globulin (2.6-4.0) g/dL Albumin/Globulin Ratio (0.9-1.6) Lipase (73-393) U/L Urine Color Urine Appearance Urine pH (5.0-8.0) Ur Specific [place] (1.001-1.035) Urine Protein (NEGATIVE) mg/dL Urine Glucose (UA) (NEGATIVE) mg/dL Urine Ketones (NEGATIVE) mg/dL Urine Occult Blood (NEGATIVE) Urine Nitrite (NEGATIVE) Urine Bilirubin (NEGATIVE) Urine Urobilinogen (<2.0) EU/dL Ur Leukocyte Esterase (NEGATIVE) Urine RBC (0-2/HPF) Urine WBC (0-5/HPF) Ur Epithelial Cells (NONE-FEW) Urine Bacteria (NEGATIVE) Urine Mucus (NONE-MOD) Urine Opiates Screen NEGATIVE (NEGATIVE) Ur Oxycodone Screen NEGATIVE (NEGATIVE) Urine Methadone Screen NEGATIVE (NEGATIVE) Ur Barbiturates Screen NEGATIVE (NEGATIVE) Ur Phencyclidine Scrn NEGATIVE (NEGATIVE) Ur Amphetamine Screen POSITIVE (NEGATIVE) U Methamphetamines Scrn POSITIVE (NEGATIVE) U Benzodiazepines Scrn NEGATIVE (NEGATIVE) U Cocaine Metab Screen NEGATIVE (NEGATIVE) U Marijuana (THC) Screen POSITIVE (NEGATIVE) Meds: Medications Discontinued Medications Generic Name Dose Route Start Last Admin Trade Name Freq PRN Reason Stop Dose Admin Diphenhydramine HCl 50 mg 06/15/19 12:06 Benadryl IVPUSH 06/15/19 12:07 ONETIME ONE Diphenhydramine HCl 50 mg 06/15/19 12:09 06/15/19 12:08 Benadryl IVPUSH 06/15/19 12:10 50 mg ONETIME ONE Administration Haloperidol Lactate 5 mg 06/15/19 12:08 06/15/19 12:19 Haldol IM 06/15/19 12:09 Not Given ONETIME ONE Haloperidol Lactate 5 mg 06/15/19 12:12 06/15/19 12:19 Haldol IM 06/15/19 12:13 5 mg ONETIME ONE Administration Sodium Chloride 1,000 mls @ 999 mls/hr 06/15/19 11:16 06/15/19 11:32 Normal Saline IV 06/15/19 12:16 999 mls/hr STAT ONE Administration Pantoprazole Sodium 80 mg/ 20 mls @ 420 mls/hr 06/15/19 11:33 06/15/19 11:37 Sodium Chloride IVPUSH 06/15/19 11:35 420 mls/hr ONETIME ONE Administration Iopamidol 100 ml 06/15/19 13:42 06/15/19 13:45 Isovue Multipack-370 (76%) IVPUSH 06/15/19 13:43 100 ml ONETIME STA Administration Ketorolac Tromethamine 30 mg 06/15/19 11:32 06/15/19 11:36 Toradol IVPUSH 06/15/19 11:33 30 mg ONETIME ONE Administration Metoclopramide HCl 10 mg 06/15/19 12:06 Reglan IV 06/15/19 12:07 ONETIME ONE Ondansetron HCl 4 mg 06/15/19 11:16 06/15/19 11:32 Zofran IVPUSH 06/15/19 11:17 4 mg ONETIME ONE Administration Pantoprazole Sodium Confirm 06/15/19 11:38 06/15/19 12:13 Protonix Iv Administered 06/15/19 11:39 Not Given Dose 40 mg .ROUTE .STK-MED ONE Departure - Departure Time of Disposition: 15:27 Disposition: Home, Self-Care 01 Clinical Impression: Substance abuse Abdominal pain Qualifiers: Abdominal location: periumbilical Qualified Code(s): R10.33 - Periumbilical pain Vomiting Qualifiers: Vomiting type: unspecified Vomiting Intractability: unspecified Nausea presence : with nausea Qualified Code(s): R11.2 - Nausea with vomiting, unspecified Proteinuria Qualifiers: Proteinuria type: unspecified Qualified Code(s): R80.9 - Proteinuria, unspecified - Discharge Information Instructions: Nausea and Vomiting, Adult, [id number], Abdominal Pain, Adult, [id number] Referrals: PCP,None [Primary Care Provider] - Forms: ED Department Discharge Additional Instructions: The following information is given to patients seen in the emergency department who are being discharged to home. This information is to outline your options for follow-up care. We provide all patients seen in our emergency department with a follow-up referral. The need for follow-up, as well as the timing and circumstances, are variable depending upon the specifics of your emergency department visit. If you don't have a primary care physician on staff, we will provide you with a referral. We always advise you to contact your personal physician following an emergency department visit to inform them of the circumstance of the visit and for follow-up with them and/or the need for any referrals to a consulting specialist. The emergency department will also refer you to a specialist when appropriate. This referral assures that you have the opportunity for follow-up care with a specialist. All of these measure are taken in an effort to provide you with optimal care, which includes your follow-up. Under all circumstances we always encourage you to contact your private physician who remains a resource for coordinating your care. When calling for follow-up care, please make the office aware that this follow-up is from your recent emergency room visit. If for any reason you are refused follow-up, please contact the [facility] Emergency Department at and asked to speak to the emergency department charge nurse. [facility] [address] [place] [id number] [id number] 1. You can alternate ibuprofen and Tylenol as directed for pain and discomfort. 2. Follow-up with a primary care provider as discussed. Return to the ED as needed and as discussed. Sepsis Event Note - Focused Exam Vital Signs: Vital Signs Temp Pulse Pulse Resp BP BP Pulse Ox 06/15/19 13:21 95/59 L 06/15/19 11:37 70 16 136/81 96 06/15/19 11:35 96.2 F L 68 20 148/102 H 100 Date Exam was Performed: 06/15/19 Time Exam was Performed: 15:27 - My Orders Last 24 Hours: My Active Orders 06/15/19 11:38 EKG Documentation Completion [RC] STAT - Assessment/Plan Last 24 Hours: My Active Orders 06/15/19 11:38 EKG Documentation Completion [RC] STAT
[2019-06-15 12:03] LABS: BLOOD UREA NITROGEN,BUN 16 mg/dL (7.0-18.0); CARBON DIOXIDE,CO2 19.1 mmol/L (21.0-32.0); CHLORIDE,CL 97 mmol/L (98-107); GLUCOSE RANDOM 88 mg/dL (74-106); LIPASE 93 U/L (73-393); POTASSIUM,K 4.2 mmol/L (3.5-5.1); SODIUM,NA 138 mmol/L (136-148)
[2019-06-15] MEDS ORDERED: diphenhydrAMINE 50 MG/ML SDV IVPUSH ONE ×2 (12:06→12:09)
[2019-06-15] MEDS ORDERED: Metoclopramide 10 MG/2 ML SDV IV ONE (12:06)
[2019-06-15] MEDS ORDERED: Haloperidol Lactate 5 MG/ML SDV IM ONE ×2 (12:08→12:12)
[2019-06-15] MEDS ORDERED: Iopamidol 755 MG/ML 500 ML Multipack Bottle IVPUSH STA (13:42)
--- NOTE | 2019-06-15 14:07 | CT ---
CT abdomen and pelvis Technique: Multiple axial sections were obtained from above the dome of the diaphragm inferiorly through the pubic symphysis. Intravenous contrast was utilized. No oral contrast has been given. Comparison: Previous CT abdomen and pelvis study of 01/25/19. Findings: Visualized lung bases show nothing acute. Small hiatal hernia is noted which is stable. Liver and spleen shows no focal parenchymal abnormality. Adrenal glands show no nodule. Pancreas shows no discrete abnormality. Gallbladder contains no calcified gallstones. Kidneys show symmetric contrast enhancement without hydronephrosis or mass. Aorta shows no aneurysm. No retroperitoneal adenopathy or mesenteric abnormalities are seen. No pelvic mass or adenopathy is seen. No free fluid or inflammatory change is seen. Appendix is seen which appears to be normal in size. Bone window settings were reviewed which shows no acute osseous finding. Impression: 1. Small hiatal hernia which is stable from prior CT exam. 2. No additional abnormality is appreciated on CT study of the abdomen and pelvis. Diagnostic code #2 This report was dictated in MDT
[2019-06-15 17:17] VITALS: BP 120/75; PULSE 95
== END 2019-06-15 15:25 | disposition home or self-care (01) ==
LOC: MW.ED 10:57
DX: R10.33 Periumbilical pain (principal); R11.2 Nausea with vomiting, unspecified; R80.9 Proteinuria, unspecified; F19.10 Other psychoactive substance abuse, uncomplicated; F17.210 Nicotine dependence, cigarettes, uncomplicated
CPT/HCPCS: 36415; 74177; 80053; 80305; 81001; 83690; 85025; 93005; 96361; 96372; 96374; 96375; 99284; C9113; J1200; J1630; J1885; J2405; J7030; Q9967

== ENCOUNTER 2021-04-02 06:18 | Day surgery (SDC) | payer OTHER ==
[~2021-04-02 06:18] MED LIST: Clindamycin Phosphate in D5W 50 ML ONE; Lactated Ringers 1,000 ML IV SCH; Sodium Chloride 0.9% 10 ML Syringe FLUSH PRN; Sodium Chloride 0.9% 2.5 ML Syringe FLUSH PRN; Sodium Chloride 0.9% 20 ML SDV IV PRN
[2021-04-02] MEDS ORDERED: Clindamycin Phosphate in D5W 600 MG in Premix Bag 1 BAG IV ONE ×4 (07:05→10:42)
[2021-04-02] MEDS ORDERED: Bupivacaine 0.5% 30 ML SDV ONE (07:19)
[2021-04-02] MEDS ORDERED: fentaNYL 250 MCG/5 ML SDV ONE ×2 (07:20→08:30)
[2021-04-02] MEDS ORDERED: Propofol 200 MG/20 ML SDV ONE (07:20)
[2021-04-02] MEDS ORDERED: HYDROmorphone 1 MG/ML Syringe IVPUSH PRN (07:46)
[2021-04-02] MEDS ORDERED: Metoclopramide 10 MG/2 ML SDV IVPUSH PRN (07:46)
[2021-04-02] MEDS ORDERED: fentaNYL 100 MCG/2 ML SDV IVPUSH PRN (07:46)
[2021-04-02] MEDS ORDERED: Morphine 4 MG/ML VIAL IVPUSH PRN (07:46)
[2021-04-02] MEDS ORDERED: Albuterol 0.083% 2.5 MG/3 ML Neb Soln NEB PRN (07:46)
[2021-04-02] MEDS ORDERED: Naloxone 0.4 MG/ML SDV IVPUSH PRN (07:46)
[2021-04-02] MEDS ORDERED: Ondansetron 4 MG/2 ML SDV IVPUSH PRN (07:46)
[2021-04-02] MEDS ORDERED: HYDROmorphone 2 MG/ML Syringe ONE ×3 (09:04→09:15)
[2021-04-02] MEDS ORDERED: Acetaminophen/HYDROcodone 325-5 MG Tab ONE (10:21)
[2021-04-02] MEDS ORDERED: Acetaminophen/HYDROcodone 325-5 MG Tab PO ONE (10:30)
[2021-04-02] MEDS ORDERED: Ketorolac 30 MG/ML SDV ONE (10:53)
[2021-04-02] MEDS ORDERED: Ketorolac 30 MG/ML SDV IVPUSH ONE (11:00)
[2021-04-02 11:43] VITALS: BP 164/91; PULSE 68
== END 2021-04-02 11:25 | disposition home or self-care (01) ==
LOC: MW.SDS 06:18
PROVIDERS: ATTEND Surgery
DX: L73.2 Hidradenitis suppurativa (principal); L02.412 Cutaneous abscess of left axilla; L02.411 Cutaneous abscess of right axilla; F17.210 Nicotine dependence, cigarettes, uncomplicated; L73.9 Follicular disorder, unspecified; Z98.890 Other specified postprocedural states
CPT/HCPCS: 11450; A9270; J1170; J1885; J2704; J3010; J3490; J7120; 00400

== ENCOUNTER 2021-06-02 09:36 | Emergency (ER) | payer OTHER ==
[2021-06-02] MEDS ORDERED: Sodium Chloride 0.9% 2.5 ML Syringe FLUSH PRN (10:11)
[2021-06-02] MEDS ORDERED: Sodium Chloride 0.9% 10 ML Syringe FLUSH PRN (10:11)
[2021-06-02] MEDS ORDERED: Ondansetron 4 MG/2 ML SDV IVPUSH ONE (10:12)
[2021-06-02] MEDS ORDERED: Sodium Chloride 0.9% 1,000 ML IV ONE ×2 (10:12→11:22)
[2021-06-02] MEDS ORDERED: LORazepam 2 MG/ML SDV IVPUSH ONE (10:29)
[2021-06-02 11:09] LABS: BLOOD UREA NITROGEN,BUN 9 mg/dL (7.0-18.0); CARBON DIOXIDE,CO2 25.6 mmol/L (21.0-32.0); CHLORIDE,CL 102 mmol/L (98-107); GLUCOSE RANDOM 112 mg/dL (74-106); POTASSIUM,K 3.7 mmol/L (3.5-5.1); SODIUM,NA 139 mmol/L (136-148)
[2021-06-02 11:47] VITALS: BP 131/91
[2021-06-02 19:26] VITALS: PULSE 78
== END 2021-06-02 13:31 | disposition home or self-care (01) ==
LOC: MW.ED 09:36
DX: R11.2 Nausea with vomiting, unspecified (principal); F41.9 Anxiety disorder, unspecified
CPT/HCPCS: 36415; 80053; 81003; 83735; 85025; 96374; 96375; 99284; J2060; J2405; J3490; J7030; 99283

== ENCOUNTER 2021-08-06 22:26 | Emergency (ER) | payer OTHER, MEDICAID ==
[2021-08-06] MEDS ORDERED: Lactated Ringers 1,000 ML IV ONE (22:36)
[2021-08-06] MEDS ORDERED: Morphine 4 MG/ML VIAL IVPUSH ONE (22:37)
[2021-08-06 23:16] LABS: CARBON DIOXIDE,CO2 25.2 mmol/L (21.0-32.0); POTASSIUM,K 3.5 mmol/L (3.5-5.1)
[2021-08-06] MEDS ORDERED: Iopamidol 755 MG/ML 500 ML Multipack Bottle IVPUSH STA (23:29)
[2021-08-07] MEDS ORDERED: Lidocaine 1% 5 ML VIAL INJECT ONE (00:44)
[2021-08-07] MEDS ORDERED: oxyCODONE 5 MG Tab PO ONE (00:45)
[2021-08-07] MEDS ORDERED: oxyCODONE 5 MG Tab ONE (00:46)
[2021-08-07] MEDS ORDERED: Lidocaine 1% 5 ML VIAL ONE (00:46)
[2021-08-07] MEDS ORDERED: Acetaminophen 500 MG Tab PO ONE (01:02)
[2021-08-07] MEDS ORDERED: Ketorolac 30 MG/ML SDV IVPUSH ONE (01:02)
[2021-08-07 01:40] VITALS: BP 141/87; PULSE 91
== END 2021-08-07 01:30 | disposition home or self-care (01) ==
LOC: MW.ED 22:26
DX: S42.031A Displaced fracture of lateral end of right clavicle, initial encounter for closed fracture (principal); S09.8XXA Other specified injuries of head, initial encounter; S22.41XA Multiple fractures of ribs, right side, initial encounter for closed fracture; Z20.822 Contact with and (suspected) exposure to COVID-19; V89.2XXA Person injured in unspecified motor-vehicle accident, traffic, initial encounter
CPT/HCPCS: 12001; 36415; 70450; 71045; 71260; 72125; 72170; 73030; 73590; 74177; 80053; 80307; 81001; 82550; 83605; 83690; 83735; 84443; 84484; 85025; 85610; 87635; 93005; 96374; 96375; 99291; 99292; A9270; J1885; J2270; J7120; Q9967; U0002

== ENCOUNTER 2021-08-14 08:42 | Day surgery (SDC) | payer MEDICAID, OTHER ==
[~2021-08-14 08:42] MED LIST changes: -Clindamycin Phosphate in D5W 50 ML ONE; -Sodium Chloride 0.9% 10 ML Syringe FLUSH PRN; -Sodium Chloride 0.9% 2.5 ML Syringe FLUSH PRN; -Sodium Chloride 0.9% 20 ML SDV IV PRN
[2021-08-14] MEDS ORDERED: Albuterol 0.083% 2.5 MG/3 ML Neb Soln NEB PRN (09:20)
[2021-08-14] MEDS ORDERED: Ondansetron 4 MG/2 ML SDV IVPUSH PRN (09:20)
[2021-08-14] MEDS ORDERED: Metoclopramide 10 MG/2 ML SDV IVPUSH PRN (09:20)
[2021-08-14] MEDS ORDERED: Naloxone 0.4 MG/ML SDV IVPUSH PRN (09:20)
[2021-08-14] MEDS ORDERED: Propofol 200 MG/20 ML SDV ONE (09:26)
[2021-08-14] MEDS ORDERED: Midazolam 1 MG/ML 2 ML SDV ONE (09:27)
[2021-08-14] MEDS ORDERED: fentaNYL 100 MCG/2 ML SDV ONE (09:27)
[2021-08-14] MEDS ORDERED: Lidocaine 2% 5 ML SDV ONE (09:30)
[2021-08-14] MEDS ORDERED: Rocuronium 100 MG/10 ML MDV ONE (09:30)
[2021-08-14] MEDS ORDERED: Bupivacaine 0.25%/EPINEPHrine 1:200,000 10 ML SDV ONE (09:53)
[2021-08-14] MEDS ORDERED: Octyl 2-Cyanoacrylate 1 Tube ONE (09:53)
[2021-08-14] MEDS ORDERED: Ropivacaine 0.5% 5 MG/ML 30 ML SDV ONE (10:34)
[2021-08-14] MEDS ORDERED: Ketamine 500 mg/10 ML MDV ONE (11:27)
[2021-08-14] MEDS ORDERED: fentaNYL 250 MCG/5 ML SDV ONE (11:34)
[2021-08-14] MEDS ORDERED: Ketorolac 30 MG/ML SDV ONE (11:55)
[2021-08-14] MEDS ORDERED: Ondansetron 4 MG/2 ML SDV ONE (11:55)
[2021-08-14] MEDS ORDERED: Sugammadex Sodium 200 MG/2 ML VIAL ONE (11:55)
[2021-08-14] MEDS: HYDROmorphone 1 MG/ML Syringe IVPUSH PRN ×3 (13:01→13:36)
[2021-08-14] MEDS: fentaNYL 50 MCG/ML SDV IVPUSH PRN ×4 (13:05→13:32)
[2021-08-14 14:47] VITALS: BP 150/97; PULSE 72
== END 2021-08-14 14:45 | disposition home or self-care (01) ==
LOC: MW.SDS 08:42
PROVIDERS: ATTEND Orthopaedic Surgery
DX: S42.001A Fracture of unspecified part of right clavicle, initial encounter for closed fracture (principal); F17.210 Nicotine dependence, cigarettes, uncomplicated; H54.7 Unspecified visual loss; X58.XXXA Exposure to other specified factors, initial encounter
CPT/HCPCS: A9270-GY; J0131; J0690; J1170; J1885; J2250; J2405; J2704; J2795; J3010; J3490; J7120

== ENCOUNTER 2021-08-23 09:38 | Day surgery (SDC) | payer MEDICAID, OTHER ==
[~2021-08-23 09:38] MED LIST changes: +Albuterol 0.083% 2.5 MG/3 ML Neb Soln NEB PRN; +HYDROmorphone 1 MG/ML Syringe IVPUSH PRN; +Metoclopramide 10 MG/2 ML SDV IVPUSH PRN; +Morphine 4 MG/ML VIAL IVPUSH PRN; +Naloxone 0.4 MG/ML SDV IVPUSH PRN; +Ondansetron 4 MG/2 ML SDV IVPUSH PRN; +fentaNYL 50 MCG/ML SDV IVPUSH PRN
[2021-08-23] MEDS ORDERED: Bupivacaine 0.5% 30 ML SDV ONE (10:19)
[2021-08-23] MEDS ORDERED: fentaNYL 100 MCG/2 ML SDV ONE (10:35)
[2021-08-23] MEDS ORDERED: Morphine 4 MG/ML VIAL ONE ×2 (10:48→10:49)
[2021-08-23] MEDS ORDERED: Ketamine 500 mg/10 ML MDV ONE (10:49)
[2021-08-23] MEDS ORDERED: propofoL 100 ML ONE (10:59)
[2021-08-23] MEDS ORDERED: ceFAZolin 1 GM Vial ONE ×2 (11:18)
[2021-08-23] MEDS ORDERED: Ketorolac 30 MG/ML SDV ONE (11:31)
[2021-08-23] MEDS ORDERED: Lidocaine 2% 100 MG/5 ML Syringe ONE (11:32)
[2021-08-23] MEDS ORDERED: HYDROmorphone 1 MG/ML Syringe ONE (11:49)
[2021-08-23] MEDS ORDERED: HYDROmorphone 2 MG Tab PO ONE (12:20)
[2021-08-23] MEDS ORDERED: Ropivacaine 0.5% 5 MG/ML 30 ML SDV ONE (12:47)
[2021-08-23 13:55] VITALS: BP 155/84; PULSE 78
== END 2021-08-23 13:20 | disposition home or self-care (01) ==
LOC: MW.SDS 09:38
PROVIDERS: ATTEND Orthopaedic Surgery
DX: S81.831A Puncture wound without foreign body, right lower leg, initial encounter (principal); S42.001A Fracture of unspecified part of right clavicle, initial encounter for closed fracture; F17.210 Nicotine dependence, cigarettes, uncomplicated; T81.30XA Disruption of wound, unspecified, initial encounter; L73.2 Hidradenitis suppurativa; L08.9 Local infection of the skin and subcutaneous tissue, unspecified; H54.7 Unspecified visual loss; Z98.890 Other specified postprocedural states; Z79.899 Other long term (current) drug therapy; X58.XXXA Exposure to other specified factors, initial encounter
CPT/HCPCS: 11043; 87070; 87075; 87205; A9270; J0131; J0690; J1170; J1885; J2270; J2704; J2795; J3010; J3490; J7120

== ENCOUNTER 2022-03-16 11:21 | Emergency (ER) | payer MEDICAID, OTHER ==
[2022-03-16 11:36] VITALS: BP 138/87; PULSE 98
[2022-03-16] MEDS ORDERED: Diphtheria,Pertussis(Acell),Tetanus Vaccine 0.5 ML Syringe IM ONE (11:46)
[2022-03-16] MEDS ORDERED: Bacitracin Oint 1 GM U/D Packet TOP ONE (11:47)
== END 2022-03-16 12:12 | disposition home or self-care (01) ==
LOC: MW.ED 11:21
DX: S61.002A Unspecified open wound of left thumb without damage to nail, initial encounter (principal); Z23 Encounter for immunization
CPT/HCPCS: 90471; 90715; 99282; 99283

== ENCOUNTER 2022-07-29 05:59 | Emergency (ER) | payer MEDICAID, OTHER ==
[2022-07-29] MEDS ORDERED: Sodium Chloride 0.9% 1,000 ML IV ONE (06:01)
[2022-07-29] MEDS ORDERED: Ondansetron 4 MG/2 ML SDV IVPUSH ONE ×2 (06:01→06:52)
[2022-07-29 06:06] VITALS: BP 139/83
[2022-07-29 06:19] LABS: BASOPHILS PERCENT AUTO 0.2 % (0.0-1.5); HEMATOCRIT 40.7 % (38.0-50.0); HEMOGLOBIN 14.1 g/dL (13.0-17.0); LYMPHOCYTES ABSOLUTE AUTO 1.3 K/uL (0.6-2.4); LYMPHOCYTES PERCENT AUTO 15.6 % (16.0-40.0); MEAN CORPUSCULAR HEMOGLOBIN 29.2 pg (27.0-32.0); MEAN CORPUSCULAR HGB CONC 34.6 g/dL (31.0-37.0); MEAN CORPUSCULAR VOLUME 84.3 fL (80.0-98.0); MONOCYTES ABSOLUTE AUTO 0.4 K/uL (0.0-0.8); MONOCYTES PERCENT AUTO 4.4 % (0.0-15.0); NEUTROPHILS ABSOLUTE AUTO 6.7 K/uL (1.4-5.7); NEUTROPHILS PERCENT AUTO 79.8 % (48.0-80.0); NRBC ABSOLUTE 0 K/uL; PLATELET COUNT,PLT 297 K/uL (150-400); RED BLOOD CELL COUNT 4.83 M/uL (4.50-5.90); WHITE BLOOD CELL COUNT,WBC 8.44 K/uL (4.0-11.0)
[2022-07-29 06:49] LABS: A/G RATIO 1.1 (0.9-1.6); ALANINE AMINOTRANSFERASE,ALT 32 IU/L (14-63); ALBUMIN 4.4 g/dL (3.4-5.0); ALKALINE PHOSPHATASE 100 U/L (46-116); ASPARTATE AMNIOTRANSFERASE,AST 19 IU/L (15-37); BILIRUBIN TOTAL 0.5 mg/dL (0.2-1.0); BLOOD UREA NITROGEN,BUN 21 mg/dL (7.0-18.0); CALCIUM 9.4 mg/dL (8.5-10.1); CARBON DIOXIDE,CO2 24.9 mmol/L (21.0-32.0); CHLORIDE,CL 101 mmol/L (98-107); CREATININE 1.1 mg/dL (0.8-1.3); ESTIMATED GFR 95 mL/min (>60); GLUCOSE RANDOM 129 mg/dL (74-106); LIPASE 214 U/L (73-393); MAGNESIUM 1.8 mg/dL (1.8-2.4); POTASSIUM,K 3.8 mmol/L (3.5-5.1); PROTEIN TOTAL,TP 8.5 g/dL (6.4-8.2); SODIUM,NA 139 mmol/L (136-148)
[2022-07-29 07:11] VITALS: PULSE 67
== END 2022-07-29 07:10 | disposition home or self-care (01) ==
LOC: MW.ED 05:59
DX: K52.9 Noninfective gastroenteritis and colitis, unspecified (principal); Z20.822 Contact with and (suspected) exposure to COVID-19
CPT/HCPCS: 36415; 80053; 83690; 83735; 85025; 87635; 96361; 96374; 96376; 99284; J2405; J7030; U0002